=== PATIENT | female | born 1985 | race Two or more races ===

== ENCOUNTER 2021-05-18 10:00 | Emergency (ER) | payer MEDICAID ==
[~2021-05-18] VITALS: Ht 162.6 cm; Wt 56.2 kg
[2021-05-18] MEDS ORDERED: SODIUM CHLORIDE 0.9% 1,000 ML IV ONE ×2 (10:15)
[2021-05-18 11:11] LABS: Basophils # (auto) 0 10 ^3/uL (0-0.2); Basophils % (auto) 0.3 % (0.0-2.0); Eosinophils # (auto) 0 10 ^3/uL (0-0.8); Eosinophils % (auto) 0.4 % (0.0-7.0); Hematocrit 41.7 % (36.0-46.0); Hemoglobin 14.5 g/dL (12.2-16.2); Lymphocytes # (auto) 1.2 10 ^3/uL (0.4-5.4); Mean Corpuscular Hgb Conc. 34.7 g/dL (32.0-36.0); Mean Corpuscular Volume 86.3 fL (80.0-100.0); Monocytes # (auto) 0.4 10 ^3/uL (0-1.3); Neutrophils # (auto) 9.2 10 ^3/uL (1.6-8.6); Neutrophils % (auto) 84.3 % (37.0-80.0); Platelet Count (auto) 262 10^3/uL (140-450); Red Blood Cells 4.83 10^6/uL (4.0-5.20); Red Cell Distribution Width 13.4 % (11.8-14.3)
[2021-05-18 11:17] LABS: Urine Bacteria NONE SEEN /hpf (None Seen); Urine Blood TRACE /uL (Negative); Urine Mucus FEW (None Seen); Urine Specific Gravity 1.042 (1.001-1.035); Urine WBC 20 /hpf (0 - 5)
[2021-05-18 11:28] LABS: Albumin 3.9 g/dL (3.4-5.0); Calcium 8.5 mg/dL (8.5-10.1); Potassium 3.5 mmol/L (3.5-5.1)
[2021-05-18 11:32] LABS: Bilirubin, Total 0.5 mg/dL (0.2-1.0); Total Protein 8.4 g/dL (6.4-8.2)
[2021-05-18] MEDS ORDERED: metroNIDAZOLE 500MG/100ML 100 ML IV ONE (12:30)
[2021-05-18] MEDS ORDERED: cefTRIAXone 1GM/50ML D5W 50 ML IV ONE (12:30)
[2021-05-18 15:09] VITALS: BP 134/78
== END 2021-05-18 15:10 | disposition home or self-care (01) ==
LOC: ER 10:00
DX: N39.0 Urinary tract infection, site not specified (principal); K52.9 Noninfective gastroenteritis and colitis, unspecified
CPT/HCPCS: 36415; 74176; 80053; 81001; 85025; 96365; 96366; 96368; 99284; J0696; J3490; J7030

== ENCOUNTER 2025-05-22 13:52 | Emergency (ER) | payer MEDICAID ==
[~2025-05-22] VITALS: Ht 167.6 cm; Wt 104.5 kg
--- NOTE | 2025-05-22 14:05 | ED.PDOC ---
History of Present Illness HPI Comments 39 y/o F, ROXANNE, presents to the ED for CC of anxiety. EMS reports, patient is coming from work where she c/o hot flashes and body numbness following, finding out that she was being released from her job. Patient reports, that she is currently [id number] and is unsure if symptoms may be related to preg ann marie or new induced stress. Patient denies LOC, head injury, abdominal cramping, or vaginal bleeding. No other symptoms or modifying factors present at this time. Time Seen by MD: 13:50 Primary Care Provider: Reviewed Notes: Nurses Notes, Pipe Cleaner Notes, Medications, Allergies Allergies: Coded Allergies: NO KNOWN ALLERGIES (Unverified , 05/18/21) Information Source: Patient, Emergency Med Personnel Mode of Arrival: EMS Severity: Moderate Timing: Minutes Duration: Since onset Prehospital treatment: None Past Medical History PAST MEDICAL HISTORY: Denies Surgical History: Denies all surgeries TELEVISION TUBE INSPECTOR History: No Pertinent TELEVISION TUBE INSPECTOR History Family History Family History: Reviewed,noncontributory to illness Social History Smoker: Non-Smoker Alcohol: Denies ETOH Use Drugs: Denies Drug Use Lives In: Home Constitutional: denies: chills, diaphoresis, fatigue, fever, malaise, sweats, weakness, others EENTM: denies: blurred vision, double vision, ear bleeding, ear discharge, ear drainage, ear pain, ear ringing, eye pain, eye redness, hearing loss, mouth pain, mouth swelling, nasal discharge, nose bleeding, nose congestion, nose pain, photophobia, tearing, throat pain, throat swelling, voice changes, others Respiratory: denies: cough, hemoptysis, orthopnea, SOB at rest, shortness of breath, SOB with excertion, stridor, wheezing, others Cardiovascular: denies: chest pain, dizzy spells, diaphoresis, Dyspnea on exertion, edema, irregular heart beat, left arm pain, lightheadedness, palpitations, PND, syncope, others Gastrointestinal: denies: abdomen distended, abdominal pain, blood streaked bowels, constipated, diarrhea, dysphagia, difficulty swallowing, hematemesis, melena, nausea, poor appetite, poor fluid intake, rectal bleeding, rectal pain, vomiting, others Genitourinary: denies: abnormal vagina bleeding, burning, dyspareunia, dysuria, flank pain, frequency, hematuria, incontinence, pain, , vagina discharge, urgency, others Neurological: denies: dizziness, fainting, headache, left sided numbness, left sided weakness, numbness, paresthesia, pre-existing deficit, right sided numbness, right sided weakness, seizure, speech problems, tingling, tremors, weakness, others Musculoskeletal: denies: back pain, gout, joint pain, joint swelling, muscle pain, muscle stiffness, neck pain, others Integumetry: denies: bruises, change in color, change in hair/nails, dryness, laceration, lesions, lumps, rash, wounds, others Allergic/Immunocompromised: denies: Difficulty Healing, Frequent Infections, Hives, Itching, others Hematologic/Lymphatic: denies: anemia, blood clots, easy bleeding, easy bruising, swollen glands, others Endocrine: denies: excessive hunger, excessive sweating, excessive thirst, excessive urination, flushing, intolerance to cold, intolerance to heat, unexplained weight gain, unexplained weight loss, others Psychiatric: reports: anxiety; denies: bipolar disorder, depression, hopeless, panic disorder, schizophrenia, sleepless, suicidal, others All Other Systems: Reviewed and Negative Physical Exam General Appearance: Moderate Distress HEENT: Normal ENT Inspection, Pharynx Normal, TMs Normal Neck: Full Range of Motion, Non-Tender, Normal, Normal Inspection Respiratory: Chest Non-Tender, Lungs Clear, No Accessory Muscle Use, No Respiratory Distress, Normal Breath Sounds Cardiovascular: No Edema, No JVD, No Murmur, No Gallop, Normal Peripheral Pulses, Regular Rate/Rhythm Breast Exam: Deferred Gastrointestinal: No Organomegaly, Non Tender, No Pulsatile Mass, Normal Bowel Sounds, Soft Genitalia: Deferred Pelvic: Deferred Rectal: Deferred Extremities: No calf tenderness, Normal capillary refill, Normal inspection, Normal range of motion, Non-tender, No pedal edema Musculoskeletal : Apperance: Normal Neurologic: Alert, bumper and painter II-XII nml as Tested, No Motor Deficits, Normal Affect, Normal Mood, No Sensory Deficits Cerebellar Function: Normal Reflexes: Normal Skin: Dry, Normal Color, Warm Peripheral Pulses: 3+ Radial (R), 3+ Radial (L) Lymphatic: No Adenopathy Was a procedure done? Was a procedure done?: No Differential Dx Considerations may include: anxiety attack X-Ray, Labs, Meds, VS Vital Signs Date Time Temp Pulse Resp B/P (MAP) Pulse Ox O2 Delivery O2 Flow Rate FiO2 05/22/25 14:34 95 20 100 Room Air 05/22/25 14:34 98.3 100 20 122/72 (89) 95 98.3 05/22/25 14:00 18 98 Room Air* 0 21 05/22/25 14:00 98.3 106 18 130/89 (103) 98 98.3 05/22/25 13:54 101 Lab Test 05/22/25 14:44 Range/Units Urine Color Yellow Yellow Urine Clarity Turbid H Clear Urine pH 6.5 5.0-9.0 Urine Specific [place] 1.020 1.001-1.035 Urine Protein 1+ H Negative Urine Ketones Negative Negative Urine Blood Negative Negative /uL Urine Nitrite Negative Negative Urine Bilirubin Negative Negative Urine Urobilinogen Normal Negative mg/dL Urine Leukocyte Esterase Negative Negative /uL Urine RBC 2 0 - 4 /hpf Urine Microscopic WBC 13 H 0-5 /HPF Urine Squamous Epithelial Cells Few <5 /hpf Urine Bacteria Few H None Seen /hpf Urine Mucus Few None Seen Urine Glucose Normal Normal mg/dL Current Medications Medications (Trade) Dose Ordered Sig/Jeanette Route Start Time Stop Time Status Last Admin Sodium Chloride 1,000 ml @ 1,000 mls/hr Q1H ONCE IV 05/22/25 14:15 05/22/25 15:14 DC 05/22/25 14:47 Patient alert. Complaining of having anxiety. Vitals stable. Answering all questions. No abdominal cramping. No vaginal bleeding pain Establish intravenous access. Was given fluids. She is medically cleared to go to [facility]. Explained to the patient. Was told to follow up with her primary care physician. Was told to come back if there is any problem. Time of 1ST Reevaluation: 14:20 Reevaluation 1ST: Improved Patient Education/Counseling: Diagnosis, Treatment Family Education/Counseling: No Family Present SEPSIS Sepsis Screen Physician Orders Electrocardigram (05/22/25 15:00) Vital Signs Date Time Temp Pulse Resp B/P (MAP) Pulse Ox O2 Delivery O2 Flow Rate FiO2 05/22/25 14:34 95 20 100 Room Air 05/22/25 14:34 98.3 100 20 122/72 (89) 95 98.3 05/22/25 14:00 18 98 Room Air* 0 21 05/22/25 14:00 98.3 106 18 130/89 (103) 98 98.3 05/22/25 13:54 101 Medications Medications Dose Ordered Sig/Jeanette Route Start Time Stop Time Status Last Admin Dose Admin Sodium Chloride 1,000 ml @ 1,000 mls/hr Q1H ONCE IV 05/22/25 14:15 05/22/25 15:14 DC 05/22/25 14:47 Departure 1 Departure Time of Disposition: 16:41 Impression: Primary Impression: Normal Qualified Codes: Z34.90 - Encounter for supervision of normal , unspecified, unspecified trimester Disposition: 01 HOME / SELF CARE / HOMELESS Condition: Good Discharged With: Self Critical Care Note Critical Care Time?: No Stability Stability form required: No Heart Score Heart Score: Heart Score Response (Comments) Value History N/A 0 EKG N/A 0 Age N/A 0 Risk Factors N/A 0 Troponin N/A 0 Total 0 I personally scribed for HUBERT SZYMANSKI MD ([email or web address]) on 05/22/25 at 14:04. Electronically submitted by Jacquelin Muñoz (Budding Biologist). I personally scribed for HUBERT SZYMANSKI MD ([email or web address]) on 05/22/25 at 14:12. Electronically submitted by Jacquelin Muñoz (Budding Biologist). I personally scribed for HUBERT SZYMANSKI MD ([email or web address]) on 05/22/25 at 14:15. Electronically submitted by Jacquelin uMñoz (Budding Biologist). HUBERT SZYMANSKI MD May 22, 2025 14:04
[2025-05-22] MEDS: SODIUM CHLORIDE 0.9% 1,000 ML IV ONE (14:47)
[2025-05-22 16:34] LABS: Urine Bacteria FEW /hpf (None Seen); Urine Blood Negative /uL (Negative); Urine Clarity Turbid (Clear); Urine Color Yellow (Yellow); Urine Mucus FEW (None Seen); Urine Protein, UAD 1+ (Negative); Urine Squamous Epithelial Cell FEW /hpf (<5); Urine Urobilinogen Normal (Negative); Urine WBC 13 /HPF (0-5); Urine pH 6.5 (5.0-9.0)
[2025-05-22 17:23] VITALS: TEMP 98
[2025-05-22 18:00] VITALS: BP 109/68; PULSE 81; RESP 22; O2SAT 98
--- NOTE | 2025-05-28 08:35 | ECG ---
[facility] Test Date: 2025-05-22 Test Time: 13:54:14 Pat Name: EARLENE KING Department: ED Room: Gender: F New Car Make Ready Mechanic: freya : 1985 Requested By: HUBERT SZYMANSKI Order Number: [id number] Reading MD: Bobby Bob Measurements Intervals [place] Rate: 101 P: 45 AL: 126 QRS: 36 QRSD: 89 T: 19 QT: 345 QTc: 448 Interpretive Statements Sinus tachycardia Electronically Signed On 05-30-2025 8:51:01 PDT by Bobby Bob Please click the below link to view image of tracing.
== END 2025-05-22 18:20 | disposition home or self-care (01) ==
LOC: EDBD 13:52 → ER 13:52
DX: O99.340 Other mental disorders complicating pregnancy, unspecified trimester (principal); F41.9 Anxiety disorder, unspecified
CPT/HCPCS: 81001; 93005; 96360; 99284; J7030